=== PATIENT | female | born 1990 | race Caucasian/White ===

== ENCOUNTER 2016-08-09 15:40 | Emergency (ER) | payer OTHER ==
[~2016-08-09] VITALS: Ht 170.2 cm; Wt 140.6 kg
[2016-08-09 15:50] VITALS: BP 150/91
--- NOTE | 2016-08-09 16:41 | ED UPPER/LOWER EXTREMITY COMPL ---
History of Present Illness General Chief Complaint: Lower Extremity Problems Stated Complaint: LEFT KNEE PAIN Source: patient, old records Exam Limitations: no limitations Vital Signs & Intake/Output Vital Signs & Intake/Output Vital Signs Date Time Temp Pulse Resp B/P Pulse O2 O2 Flow FiO2 Ox Delivery Rate 08/09 1550 98.1 103 20 150/91 98 Room Air Allergies Coded Allergies: tree nut (Intermediate, ITCHY THROAT AND RASH 08/09/16) Uncoded Allergies: DUST (08/09/16) Reconcile Medications Levonorgestrel (Mirena) 20 MCG/24 HOUR (5 YEARS) IUD CONTROL (Reported) Naproxen 500 MG TABLET 1 TAB PO BID PRN pain Triage Note: TRIAGE: PT TO ER C/C L KNEE PAIN X 4-5 MONTHS, CONSTANT AND WORSENING SINCE ONSET. NO KNOWN INJURY. TAKES IBUPROFEN PRN "ONLY WHEN IT GETS REALLY BAD". REFUSES OFFERED PAIN MEDICATIONS AT TRIAGE. Triage Nurses Notes Reviewed? yes Onset: Gradual Duration: constant, waxing and waning, x 4-5 months Timing: recent history Severity: mild, moderate Severity Numbers: 5 Pain/Injury Location: Left: Knee. Method of Injury: unknown No Modifying Factors: none Associated Symptoms: none : No Patient currently breastfeeds: No HPI: 26 year old female with no medical history presents to the ER for evaluation c/o 4-5 month history of intermittent L anterior knee pain nonradiating. pt denies any known injury or trauma however states she is on her feet all day at work. no back, hip, foot or ankle pain. her kneepain has been gradual in onset, aching throbbing intermittenly nonradiating. she feels at times her knee give out. there was no fall or trauma however. no other injury or complaints. she has beent aking ibuprofenwithout improvement. pt declining anything for pain when offered. no otherleg swelilng, no other joing pain,fever,chills, cp or dyspnea (PIPPA SHABAZZ,GUANAKITO) Past History Travel History Traveled to [place] past 21 day No Medical History Any Pertinent Medical History? 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 No (GUANAKITO WINKLER) Review of Systems Review of Systems Constitutional: Reports: see HPI. All Other Systems: Reviewed and Negative Comments Review of systems: See HPI, All other systems negative. Constitutional, no chills no fever, no malaise HEENT: no sore throat no congestion, no ear pain Cardiovascular: No chest pain , no palpitation Skin, no rashes, no change in skin Respiratory: No dyspnea no cough no sputum GI: No nausea no vomiting, no diarrhea, : No dysuria Muscle skeletal: joint pain, no joint swelling, no back pain, no neck pain, Neurologic: No numbness no confusion, no headache Psych: No stress Heme/endocrine: No bruising no bleeding Immunology: No lymphadenopathy, (GUANAKITO WINKLER) Physical Exam Physical Exam General Appearance: well developed/nourished, no apparent distress, alert Comments: Well-developed well-nourished patient in no apparent distress. HEENT: Atraumatic, extraocular motion intact Neck: Supple, FROM Back: FROM Cardiovascular: Regular rate and rhythms no murmurs rubs Respiratory:No respiratory distress. Patient speaking in full complete sentences. Breath sounds clear to auscultation bilaterally: NO W/R/R upper Extremities: full range of motion Hip/Pelvis: Atraumatic/Stable. FROM. No pain with pelvic compression Knee: Atraumatic/stable, ttp over the quadricep tendion and superior patella, no echysmosis, FROM. No joint swelling, no effusion. No laxity. Negative alexa/ anterior drawer test. No pain with ROM Leg: Atraumatic. no calf swelling, neg homans, Nontender. No edema, 5 out of 5 strength in the lower extremity, normal dorsiflexion of great toe bilaterally, gross sensation is intact, patellar tendon reflex 2+ bilaterally. Ankle/Foot: Atraumatic/stable. Skin intact. FROM. No swelling, no effusion. No laxity on exam Pulses: Normal/equal DP/PT pulses bilaterally. Brisk cap refill Neuro: Alert and oriented x3 Skin: Warm & dry;No appreciable rash on exposed skin Psych: Mood affect normal, normal memory normal judgment. (GUANAKITO WINKLER) Progress Differential Diagnosis: compartment syndrome, contusion, dislocation, DVT, fracture, septic arthritis, sprain, tendon injury Plan of Care: Orders Procedure Date/time Status Durable Medical Equipment 08/09 1648 Active xray ordered, pt declining anything for pain 1730 d/w the pt her xray results, leg immobilzer applied, advised close f/u with pmd/ortho onmonday. pt feels comfrotable with plan, i answered all of her questions, amb with steady gait.rx for naproxen called into her pharmacy (GUANAKITO WINKLER) Diagnostic Imaging: Viewed by Me: Radiology Read. Discussed w/RAD: Radiology Read. Radiology Impression: PATIENT: EVIE CORDERO PRESENT AGE: 26 PATIENT ACCOUNT NO: [id number] : 91 LOCATION: [facility] ORDERING PHYSICIAN: GUANAKITO SHABAZZ SERVICE DATE: 08/09/16-1648 EXAM TYPE: RAD - XRY- KNEE COMPLETE LEFT EXAMINATION: XR KNEE, LEFT CLINICAL INFORMATION: Left knee pain COMPARISON: None TECHNIQUE: Four views of the left knee. FINDINGS: Osseous alignment is anatomic. Joint spaces are maintained. No acute fracture is seen. No significant effusion. IMPRESSION: No acute findings identified. DICTATED BY: TRANG HERNANDEZ MD DATE/TIME DICTATED:08/09/161721 MAMMAL KEEPER:ADRIAN DATE/TIME TRANSCRIBED:08/09/161721 CONFIDENTIAL, DO NOT COPY WITHOUT APPROPRIATE AUTHORIZATION. <Electronically signed in Other Vendor System> SIGNED BY: TRANG HERNANDEZ MD 08/09/161726 (GUANAKITO WINKLER) Departure Departure Time of Disposition: 1727 Disposition: HOME OR SELF CARE Condition: Stable Clinical Impression Primary Impression: Knee sprain Referrals: JANINA GREWAL,MARITA Badillo (PCP/Family) JT ELAINE MD Additional Instructions: rest, ice, tylenol or naproxen for pain. leg immobilizer as discussed. follow up with your pmd or orthopedist dr elaine on friday. return with any concerns. Departure Forms: Customer Survey General Discharge Information Prescriptions: Current Visit Scripts Naproxen 1 TAB PO BID PRN pain #30 TAB (GUANAKITO WINKLER) PA/QUILT MAKER Co-Sign Statement Statement: ED Attending supervision documentation- [] I saw and evaluated the patient. I have also reviewed all the pertinent lab results and diagnostic results. I agree with the findings and the plan of care as documented in the PA's/QUILT MAKER's documentation. [X] I have reviewed the ED Record and agree with the PA's/QUILT MAKER's documentation. [] Additions or exceptions (if any) to the PAs/QUILT MAKER's note and plan are summarized below: [] (CHETAN GREWAL,TERRENCE)
[2016-08-09] MEDS ORDERED: MIRENA1 EACH (16:53)
--- NOTE | 2016-08-09 17:27 | RADIOLOGY REPORT ---
EXAMINATION: XR KNEE, LEFT CLINICAL INFORMATION: Left knee pain COMPARISON: None TECHNIQUE: Four views of the left knee. FINDINGS: Osseous alignment is anatomic. Joint spaces are maintained. No acute fracture is seen. No significant effusion. IMPRESSION: No acute findings identified.
[2016-08-09] MEDS ORDERED: NAPROXEN500 M2 PO (17:32)
== END 2016-08-09 17:30 ==
LOC: ERH 15:40
DX: S83.92XA Sprain of unspecified site of left knee, initial encounter (principal); X58.XXXA Exposure to other specified factors, initial encounter; Y93.9 Activity, unspecified; Y92.9 Unspecified place or not applicable
CPT/HCPCS: 73562-LT